=== PATIENT | male | born 1950 | race Caucasian/White ===

== ENCOUNTER 2019-08-05 09:36 | Day surgery (SDC) | payer BC, OTHER ==
[2019-08-01 15:26] VITALS: BMI 37.3
[~2019-08-05 09:36] MED LIST: LACTATED RINGERS 1,000 ML IV SCH
[2019-08-05 10:24] VITALS: TEMP 97.9
[2019-08-05] MEDS ORDERED: LIDOCAINE 1% 20 ML VIAL (10MG/ML) FOR IV START INTRADERMA ONE (10:24)
[2019-08-05] MEDS ORDERED: LIDOCAINE 1% INJ 10MG/ML (20 ML MDV) ONE (10:58)
[2019-08-05] MEDS ORDERED: PROPOFOL 10 MG/ML 20 ML VIAL IV ONE (10:58)
--- NOTE | 2019-08-05 11:39 | P.PCN ---
Date of Procedure: 08/05/19 Description of Procedure: BRIEF HISTORY: Patient is a 69-year-old male presenting for outpatient colonoscopy for screening for malignant neoplasm of the colon. He reports last colonoscopy 2 years ago. He has a history of colon cancer and reports a bowel resection 6 years ago. Denies any change in bowel habits recently does feel however that he is had problems with his bowels in starting medication for treatment of his atrial fibrillation. PROCEDURE PERFORMED: Colonoscopy with polypectomy. PREOPERATIVE DIAGNOSIS: Screening for malignant neoplasm in the colon, last colonoscopy 2 years ago per report from the patient, history of colon cancer. ESTIMATED BLOOD LOSS: Minimal. IV sedation per Anesthesia. PROCEDURE: After informed consent was obtained, the patient, was brought into the endoscopy unit. IV sedation was administered by Anesthesia under continuous monitoring. Digital rectal examination was normal. Initially the Olympus CF-190 flexible video colonoscope was then inserted in the rectum, gradually advanced into the cecum without any difficulty. Careful examination was performed as the scope was gradually being withdrawn. Ileocecal valve and the appendiceal orifice were visualized and appeared normal. Prep was excellent. Mucosa of the cecum, ascend ing colon, transverse colon, descending colon, sigmoid colon, and rectum appeared normal. Pedunculated 15 mm transverse colon polyp removed with hot snare polypectomy. Tattoo from previous polyp and/or malignancy noted in the rectum. Retroflexion was performed in the rectum and no lesions were seen. The patient tolerated the procedure well. IMPRESSION: Large pedunculated transverse colon polyp removed with hot snare polypectomy. Tattoo noted in the rectum with no abnormal tissue in the vicinity of the tattoo. RECOMMENDATIONS: Findings of this examination were discussed with the patient and his . Okay for diet today. Okay to resume medications except for anticoagulation which should be resumed tomorrow. Await pathology from polypectomy. Would recommend repeat colonoscopy in 3 years given large colon polyp and history of colon cancer.
[2019-08-05 12:07] VITALS: BP 150/76; PULSE 68; RESP 20
== END 2019-08-05 12:15 | disposition home or self-care (01) ==
LOC: ORWHC2ENDO 09:36
PROVIDERS: ATTEND Internal Medicine
DX: Z12.11 Encounter for screening for malignant neoplasm of colon (principal); D12.3 Benign neoplasm of transverse colon; L81.8 Other specified disorders of pigmentation; Z85.038 Personal history of other malignant neoplasm of large intestine; I10 Essential (primary) hypertension; I48.91 Unspecified atrial fibrillation; M19.90 Unspecified osteoarthritis, unspecified site; Z87.891 Personal history of nicotine dependence; Z91.09 Other allergy status, other than to drugs and biological substances; Z79.899 Other long term (current) drug therapy; Z79.01 Long term (current) use of anticoagulants; Z90.49 Acquired absence of other specified parts of digestive tract; Z98.890 Other specified postprocedural states; Z90.89 Acquired absence of other organs; Z84.1 Family history of disorders of kidney and ureter
CPT/HCPCS: 88305; 45385; J2001; J2704